=== PATIENT | male | born 1955 | race Caucasian/White ===

== ENCOUNTER 2019-11-11 07:52 | Day surgery (SDC) | payer OTHER ==
[~2019-11-11 07:52] MED LIST: KETOROLAC TROMETHAMINE 0.45% 4 DROP/0.4 ML DROPERETTE OD PRN
[2019-11-11] MEDS: CYCLOPENTOLATE 0.2%/PHENYLEPHRINE 1% OPH SOLN 2 ML OD PRN ×3 (08:36→08:56)
[2019-11-11] MEDS: TROPICAMIDE 1% OPH SOLN 15 ML OD PRN ×3 (08:36→08:56)
[2019-11-11] MEDS: TETRACAINE HCL 0.5% OPH SOLN 4 ML OD PRN ×4 (08:36→09:06)
[2019-11-11] MEDS: BESIFLOXACIN HCL 0.6% OPH SUSP 5 ML BOTTLE OD PRN ×4 (08:36→09:27)
[2019-11-11] MEDS ORDERED: FENTANYL CITRATE INJ/PF 100 MCG/2 ML AMPUL ONE (09:10)
[2019-11-11] MEDS ORDERED: MIDAZOLAM 2 MG/2 ML INJ ONE (09:10)
[2019-11-11] MEDS: CHONDR SU A NA/HYALUR INTRAOC KIT (SURGICARE) ONE ×2 (09:14)
[2019-11-11] MEDS: LIDOCAINE 1%/PHENYLEPHRINE 1.5% 0.8 ML SYRINGE ONE ×2 (09:14)
[2019-11-11] MEDS: EPINEPHRINE INJ/PF 1 MG/1 ML AMPULE ONE ×2 (09:14)
[2019-11-11] MEDS: DORZOLAMIDE HCL 2%/TIMOLOL MALEAT 0.5% OPH SOLN 10 ML OD PRN ×2 (09:27)
[2019-11-11] MEDS ORDERED: EPINEPHRINE INJ/PF 1 MG/1 ML AMPULE ONE (09:35)
--- NOTE | 2019-11-11 13:12 | Operative Report ---
Operative Report[facility] Operative Report: DATE OF SURGERY: 11/11/2019 PREOPERATIVE DIAGNOSIS: Cataract, right eye POSTOPERATIVE DIAGNOSIS: Cataract, right eye OPERATION: Cataract extraction with insertion of an IOL of the right eye. Intraocular Lens Model: [17.0 sn60wf] Underwent surgery for difficulty seeing road signs SURGEON: Ankush Galvez MD ANESTHESIA: Topical PROCEDURE: After obtaining appropriate consent, the patient's right eye was prepped and draped in a sterile fashion as well as the surgeon in the sterile manner and cataract surgery was started. First a paracentesis blade was used to make a side-port incision. Viscoelastic was used to inflate the anterior chamber. Next a 2.4 mm incision was made with a 2.4 mm blade, clear corneal temporarily. A continuous capsulorrhexis was made using a cystotome and Utrata forceps. Following this hydrodissection was carried out to make the kevin fully loose and mobile and it was rotated. Following this, a divide and conquer technique was used to phacoemulsify the kevin. The remaining cortex was removed with an irrigation/aspiration. Provisc was instilled into the capsular bag to inflate the bag. The intraocular lens was placed. The remaining viscoelastic material was removed with irrigation/aspiration. Following this, the incision was found to be watertight. Besivance and Cosopt was instilled into the eye and a protective shield was placed over the eye. The patient was reurned to the postoperative recovery in a stable condition.
== END 2019-11-11 10:15 | disposition home or self-care (01) ==
LOC: SC 07:52
PROVIDERS: ATTEND Internal Medicine
DX: H25.813 Combined forms of age-related cataract, bilateral (principal); I10 Essential (primary) hypertension; I25.2 Old myocardial infarction; E78.00 Pure hypercholesterolemia, unspecified; N40.0 Benign prostatic hyperplasia without lower urinary tract symptoms; I25.10 Atherosclerotic heart disease of native coronary artery without angina pectoris; Z87.891 Personal history of nicotine dependence; Z79.82 Long term (current) use of aspirin
CPT/HCPCS: 66984; V2632; J2250; J3490 ×3; J0171; J3010

== ENCOUNTER 2019-11-16 19:56 | Emergency (ER) | payer OTHER ==
[2019-11-16 20:25] LABS: ABSOLUTE LYMPHOCYTES (AUTO) 0.9 10^3/uL (0.5-4.7); ABSOLUTE MONOCYTES (AUTO) 0.6 10^3/uL (0.1-1.4); ABSOLUTE NEUT (AUTO) 10.5 10^3/uL (1.7-8.2); BASOPHILS % (AUTO) 0.2 % (0-2); EOSINOPHILS % (AUTO) 0.1 % (0-6); HEMOGLOBIN 15.5 g/dL (13.5-17.0); LYMPHOCYTES % (AUTO) 7.8 % (13-45); MEAN CORPUSCULAR HEMOGLOBIN 30.5 pg (27.0-33.4); MEAN CORPUSCULAR HGB CONC 34.5 g/dL (32.0-36.0); MEAN CORPUSCULAR VOLUME 88 fl (80-97); MONOCYTES % (AUTO) 5.2 % (3-13); PLATELET COUNT 283 10^3/uL (150-450); RED BLOOD COUNT 5.09 10^6/uL (4.35-5.55); RED CELL DISTRIBUTION WIDTH 13.4 % (11.5-14.0); SEGMENTED NEUTROPHILS % (AUTO) 86.7 % (42-78); TOTAL CELLS COUNTED % (AUTO) 100 %; VENOUS BLOOD BASE EXCESS 0.1 mmol/L; VENOUS BLOOD HCO3 23.2 mmol/L (20-32); VENOUS BLOOD PCO2 33.4 mmHg (35-63); VENOUS BLOOD PH 7.46 (7.30-7.42); WHITE BLOOD COUNT 12.1 10^3/uL (4.0-10.5)
[2019-11-16 20:49] LABS: ALBUMIN 3.8 g/dL (3.5-5.0); ALKALINE PHOSPHATASE 62 U/L (38-126); ANION GAP 10 (5-19); ASPARTATE AMINO TRANSFERASE 17 U/L (17-59); BILIRUBIN,DIRECT 0.3 mg/dL (0.0-0.4); BILIRUBIN,TOTAL 0.6 mg/dL (0.2-1.3); BLOOD UREA NITROGEN 9 mg/dL (7-20); CALCIUM 8.9 mg/dL (8.4-10.2); CARBON DIOXIDE 23 mmol/L (22-30); CHLORIDE 104 mmol/L (98-107); GLUCOSE 160 mg/dL (75-110); TOTAL PROTEIN 7.1 g/dL (6.3-8.2)
--- NOTE | 2019-11-16 20:54 | ER Document Report ---
ED General - General Chief Complaint: Shortness Of Breath Stated Complaint: SHORTNESS OF BREATH Time Seen by Provider: 11/16/19 20:51 Primary Care Provider: SUSAN,KANG [Primary Care Provider] - Follow up as needed TRAVEL OUTSIDE OF THE [place] IN LAST 30 DAYS: No - HPI Notes: 64-year-old male presents with fever, cough and shortness of breath. Patient states that his symptoms had onset of today. Temperature 102.2 at home, he states that he saw his temperature progressively rise throughout the day. He states that shortness of breath is quotation unbearable quotation. He states that it hurts to breathe, he has a stabbing sensation when he tries to take a deep breath. He has a history of COPD. He also states that he felt that his sinus issues are flaring up, he took a Mucinex which did not resolve his symptoms. He is a cable television technician. - Related Data Allergies/Adverse Reactions: No Known Allergies Allergy (Verified 11/16/19 20:16) Past Medical History - General Information source: Patient - Social History Smoking Status: Current Some Day Smoker Family History: CAD Patient has homicidal ideation: No - Past Medical History Cardiac Medical History: Reports: Hx Heart Attack - stents Denies: Hx Hypertension Pulmonary Medical History: Denies: Hx Asthma Neurological Medical History: Denies: Hx Cerebrovascular Accident, Hx Seizures GI Medical History: Denies: Hx Hepatitis, Hx Hiatal Hernia, Hx Ulcer Infectious Medical History: Denies: Hx Hepatitis Past Surgical History: Reports: Hx Appendectomy, Hx Open Heart Surgery - 02/2019. Denies: Hx Pacemaker Review of Systems - Review of Systems Constitutional: Fever EENT: No symptoms reported Cardiovascular: denies: Chest pain Respiratory: Cough, Hurts to breathe, Short of breath, Wheezing Gastrointestinal: denies: Diarrhea Genitourinary: No symptoms reported Male Genitourinary: No symptoms reported Musculoskeletal: denies: Muscle pain Skin: No symptoms reported Hematologic/Lymphatic: No symptoms reported Neurological/Psychological: No symptoms reported Physical Exam - Vital signs Vitals: Temp Pulse Resp BP Pulse Ox 99.8 F 118 H 20 131/78 H 95 11/16/19 20:01 11/16/19 20:01 11/16/19 20:01 11/16/19 20:01 11/16/19 20:01 - General General appearance: Appears well, Alert In distress: None - HEENT Head: Normocephalic, Atraumatic Extraocular movements intact: Yes Pupils: PERRL - Respiratory Respiratory status: No: Labored, Retractions Breath sounds: Nonproductive cough, Wheezing - Bilateral Notes: Able to speak in full sentences - Cardiovascular Rhythm: Regular Heart sounds: Normal auscultation Normal capillary refill: Yes - Abdominal Tenderness: Nontender - Extremities General lower extremity: No: Edema - Neurological Neuro grossly intact: Yes Cognition: Normal Orientation: AAOx4 - Psychological Associated symptoms: Normal affect - Skin Skin Temperature: Warm Course - Re-evaluation Re-evalutation: 11/16/19 22:13 64-year-old male here with fever, cough and shortness of breath. He is overall well-appearing, he is in no respiratory distress. He was febrile with EMS 102.5, he received Tylenol prior to arrival. He was noted to be 95% on room air. He does have bilateral wheezing on exam. Given his profession as a cable television technician and his symptoms, I am highly concerned for COVID, he will receive a swab. Pneumonia possibility as well. He does not voice any other infectious symptoms. Will start with DuoNeb and Decadron, likely COVID could be causing COPD exacerbation as well. 11/16/19 22:20 X-ray reviewed, no consolidation. 11/16/19 23:18 Mild leukocytosis. No CO2 retention. Electrolytes okay. No episodes of hypoxia noted while in ED. I went into reassess patient, he is status post 2 duo nebs. He reports he is feeling much better and the spasming that he was feeling in his upper trap has now resolved. His lung sounds have improved. I discussed with him his work-up and high suspicion for COVID. I discussed with him strict isolation at home. Will Rx albuterol MDI. Patient has pulse ox at home, encouraged to the need to use it. Strict return precautions given, stable time discharge. - Vital Signs Vital signs: Temp Pulse Resp BP Pulse Ox 99.8 F 118 H 20 131/78 H 95 11/16/19 20:01 11/16/19 20:01 11/16/19 20:01 11/16/19 20:01 11/16/19 20:01 - Laboratory Result Diagrams: 11/16/19 20:11/16/19 20:01 Laboratory results interpreted by me: 11/16/19 11/16/19 11/16/19 20:01 20:01 20:01 WBC 12.1 H Lymph % (Auto) 7.8 L Absolute Neuts (auto) 10.5 H Seg Neutrophils % 86.7 H VBG pH 7.46 H VBG pCO2 33.4 L Glucose 160 H - Diagnostic Test Radiology reviewed: Image reviewed, Reports reviewed Discharge - Discharge Clinical Impression: Suspected COVID-19 virus infection Condition: Stable Disposition: HOME, SELF-CARE Additional Instructions: Continue to use Tylenol for fever. Be sure to drink plenty of fluids. You may use albuterol 4 puffs every 4 hours for shortness of breath or wheezing. Please isolate at home, you will be called with your COVID test results. Please return to the emergency department for any low oxygen saturations, worsening of her symptoms, or any symptoms that are new or concerning. Prescriptions: Albuterol Sulfate [Proair HFA Inhalation Aerosol 8.5 gm MDI] 4 puff IH Q4H PRN #1 mdi PRN Reason: [facility]errals: [facility] [[facility]] - Follow up as needed
--- NOTE | 2019-11-16 21:07 | RADIOLOGY REPORT (SQ) ---
EXAM DESCRIPTION: XR CHEST 1 VIEW COMPLETED DATE/TME: 11/16/2019 20:13 CLINICAL HISTORY: 64 years, Male, SOB EXAM DESCRIPTION: CLINICAL HISTORY: SOB COMPARISON: 12/26/2015 FINDINGS: Single view of the chest is submitted. Pulmonary edema has improved. Heart size is stable. Sternotomy wires are again seen. No focal consolidation. No significant pleural effusion. No evidence of pneumothorax. IMPRESSION: Improved edema.
[2019-11-16] MEDS ORDERED: IPRATROPIUM/ALBUTEROL 0.5-2.5 MG/3 ML AMPUL NEB ONE ×2 (21:18→22:28)
[2019-11-16] MEDS ORDERED: DEXAMETHASONE SOD PHOS INJ 10 MG/1 ML VIAL IV ONE (21:18)
[2019-11-17 00:01] VITALS: BP 125/80
--- NOTE | 2019-11-19 18:33 | EKG REPORT ---
SEVERITY:- ABNORMAL ECG - SINUS TACHYCARDIA LEFT ATRIAL ABNORMALITY BORDERLINE INFERIOR Q WAVES ST ELEVATION SUGGESTS PERICARDITIS VERSUS LATERAL WALL AK, CLINICAL CORRELATION NEEDED. : Confirmed by: Jose A Newton MD 19-Nov-2019 18:33:24
== END 2019-11-17 00:01 | disposition home or self-care (01) ==
LOC: ER 19:56
DX: J44.9 Chronic obstructive pulmonary disease, unspecified (principal); R50.9 Fever, unspecified; R06.02 Shortness of breath; R05 Cough; I25.2 Old myocardial infarction; R07.1 Chest pain on breathing; D72.829 Elevated white blood cell count, unspecified; F17.200 Nicotine dependence, unspecified, uncomplicated; Z95.5 Presence of coronary angioplasty implant and graft; Z20.828 Contact with and (suspected) exposure to other viral communicable diseases
CPT/HCPCS: 94640 ×2; 99285; 96374; 36415; 83605; 85025; 87635; 80053; 82803; 71045; J1100; C9803; 93005; 93010

== ENCOUNTER 2019-12-02 09:12 | Day surgery (SDC) | payer OTHER ==
[~2019-12-02 09:12] MED LIST changes: +CHONDR SU A NA/HYALUR INTRAOC KIT (SURGICARE) ONE; +DORZOLAMIDE HCL 2%/TIMOLOL MALEAT 0.5% OPH SOLN 10 ML OS PRN; +EPINEPHRINE INJ/PF 1 MG/1 ML AMPULE ONE; +FENTANYL CITRATE INJ/PF 100 MCG/2 ML AMPUL ONE; -KETOROLAC TROMETHAMINE 0.45% 4 DROP/0.4 ML DROPERETTE OD PRN; +KETOROLAC TROMETHAMINE 0.45% 4 DROP/0.4 ML DROPERETTE OS PRN; +LIDOCAINE 1%/PHENYLEPHRINE 1.5% 0.8 ML SYRINGE ONE; +MIDAZOLAM 2 MG/2 ML INJ ONE; +ONDANSETRON HCL INJ/PF 4 MG/2 ML SDV ONE; +PREDNISOLONE ACETATE 1% OPH SUSP 5 ML OS PRN
[2019-12-02] MEDS: CYCLOPENTOLATE 0.2%/PHENYLEPHRINE 1% OPH SOLN 2 ML OS PRN ×3 (09:42→09:51)
[2019-12-02] MEDS: BESIFLOXACIN HCL 0.6% OPH SUSP 5 ML BOTTLE OS PRN ×3 (09:42→10:37)
[2019-12-02] MEDS: TROPICAMIDE 1% OPH SOLN 15 ML OS PRN ×3 (09:42→09:51)
[2019-12-02] MEDS: TETRACAINE HCL 0.5% OPH SOLN 4 ML OS PRN ×3 (09:42→10:16)
--- NOTE | 2019-12-02 13:42 | Operative Report ---
Operative Report[facility] Operative Report: DATE OF SURGERY: 12/02/2019 PREOPERATIVE DIAGNOSIS: Cataracts, left eye POSTOPERATIVE DIAGNOSIS: Cataract, left eye OPERATION: Cataract extraction with insertion of an IOL of the left eye. Intraocular Lens Model: [16.5 diopter SN 60 WF] Patient underwent surgery for difficulty seeing road signs and for difficulty seeing small print SURGEON: Ankush Galvez MD ANESTHESIA: Topical PROCEDURE: After obtaining appropriate consent, the patient's left eye was prepped and draped in a sterile fashion as well as the surgeon in the sterile manner and cataract surgery was started. First a paracentesis blade was used to make a side-port incision. Viscoelastic was used to inflate the anterior chamber. Next a 2.4 mm incision was made with a 2.4 mm blade, clear corneal temporarily. A continuous capsulorrhexis was made using a cystotome and Utrata forceps. Following this hydrodissection was carried out to make the lens fully loose and mobile and it was rotated 90 degrees. Following this, a divide and conquer technique was used to phacoemulsify the lens. The remaining cortex was removed with an irrigation/aspiration. Provisc was instilled into the capsular bag to inflate the bag.The intraocular lens was placed. The remaining viscoelastic material was removed with irrigation/aspiration. Following this, the incision was found to be watertight. Besivance and Cosopt was instilled into the eye and a protective shield was placed over the eye. The patient was returned to the postoperative recovery in a stable condition.
== END 2019-12-02 11:10 | disposition home or self-care (01) ==
LOC: SC 09:12
PROVIDERS: ATTEND Internal Medicine
DX: H25.12 Age-related nuclear cataract, left eye (principal); Z96.1 Presence of intraocular lens; I10 Essential (primary) hypertension; I25.2 Old myocardial infarction; E78.00 Pure hypercholesterolemia, unspecified; Z87.891 Personal history of nicotine dependence; Z79.82 Long term (current) use of aspirin; Z79.899 Other long term (current) drug therapy; N40.0 Benign prostatic hyperplasia without lower urinary tract symptoms; Z83.3 Family history of diabetes mellitus; Z83.511 Family history of glaucoma; Z95.1 Presence of aortocoronary bypass graft
CPT/HCPCS: 66984; V2632; J2250; J3490 ×3; J0171; J3010; J2405; 142

== ENCOUNTER → 2019-12-27 | Outpatient (CLI) | payer OTHER ==
--- NOTE | 2019-12-27 14:44 | RADIOLOGY REPORT (SQ) ---
EXAM DESCRIPTION: CT LUNG CANCER SCREENING IMAGES COMPLETED DATE/TIME: 12/27/2019 1:07 pm REASON FOR STUDY: Z12.2 ENCNTR SCREEN FOR MALIGNANT NEOPLASM OF RESPIRATORY ORGANS Z12.2 ENCNTR SCR EEN FOR MALIGNANT NEOPLASM OF RESPIRATORY OR Has the patient had a Chest CT scan within the past year? N Was the patient offered tobacco cessation counseling? N Was the patient engaged in shared decision making for this test? Y Does the patient have signs or symptoms of Lung Cancer? N Is the patient a smoker? N How many pack years? 47YR How many years since quitting smoking? LE Patients age: 64 COMPARISON: 08/31/2018. TECHNIQUE: Low Dose CT scan performed of the chest without intravenous contrast for purposes of scre ening for lung cancer. Images reviewed with lung, soft tissue and bone windows. Reconstructed coron al and sagittal MPR images reviewed. All images stored on PACS. All CT scanners at this facility use dose modulation, iterative reconstruction, and/or weight based d osing when appropriate to reduce radiation dose to as low as reasonably achievable (ALARA). [facility]: Dose Right [facility]: CareDose [facility]: Dose Right [facility]: Teradose 4D [facility]: Smart [place] RADIATION DOSE: CT Rad equipment meets quality standard of care and radiation dose reduction techniq ues were employed. CTDIvol: 2.1 mGy. DLP: 85 mGy-cm. mGy. . LIMITATIONS: No technical limitations. FINDINGS: LUNG NODULES: Description: 2 mm subpleural nodule right upper lobe, stable from prior. 4 mm subpleural nodule along the left fissure, also stable. A few scattered 1-2 mm pulmonary nodules in the right upper lobe, stable. No new pulmonary nodules. Size: Up to 4 mm REMAINING LUNGS AND PLEURA: No pleural effusions or calcifications. No pneumothorax. Background mild moderate pulmonary emphysema, stable. HILAR AND MEDIASTINAL STRUCTURES: Prominent mediastinal lymph nodes are stable from prior, the larges t measuring 1.2 cm short axis diameter at the precarinal region. HEART AND VASCULAR STRUCTURES: No aortic aneurysm. No pericardial effusion. Postoperative changes of prior CABG. No devices. Ectasia of the ascending thoracic aorta measuring 4.4 cm, stable. CORONARY ARTERY CALCIFICATIONS: Vascular stent. UPPER ABDOMEN: No significant findings. THYROID AND OTHER SOFT TISSUES: No masses. No adenopathy. BONES: No significant finding. OTHER: No other significant findings. IMPRESSION: No significant interval change. A few scattered subcentimeter noncalcified pulmonary no dules measuring up to 4 mm are stable. Background mild to moderate pulmonary emphysema, unchanged. No new pulmonary nodules. NO OTHER CLINICALLY SIGNIFICANT/POTENTIALLY CLINICALLY SIGNIFICANT FINDINGS LUNGRADS: LUNGRADS: 2 BENIGN APPEARANCE OR BEHAVIOR. NODULES WITH A VERY LOW LIKELIHOOD OF BECOMIN G A CLINICALLY ACTIVE CANCER DUE TO SIZE OR LACK OF GROWTH. MODIFIER: NONE. RECOMMENDATION: Continue annual screening with LDCT in 12 months. COMMENT: CRITERIA: Solid nodule(s): < 6 mm; new < 4 mm. Part solid nodule(s): < 6 mm total diameter on baseline screening. Non solid nodule(s) (GGN): < 20 mm OR ? 20 and unchanged or slowly growing. Category 3 or 4 nodules unchanged for ? 3 months. TECHNICAL DOCUMENTATION: JOB ID: [id number] Quality ID # [id number]: Final reports with documentation of one or more dose reduction techniques (e.g., Au tomated exposure control, adjustment of the mA and/or kV according to patient size, use of iterative reconstruction technique) [address] [place] [address] Radiology Reading location - IP/workstation name: [email or web address]
== END ==
LOC: RAD 13:36
PROVIDERS: ATTEND Family Medicine
DX: Z12.2 Encounter for screening for malignant neoplasm of respiratory organs (principal); J43.2 Centrilobular emphysema; R91.8 Other nonspecific abnormal finding of lung field; Z87.891 Personal history of nicotine dependence
CPT/HCPCS: G0297